=== PATIENT | female | born 2000 | race Caucasian/White ===

== ENCOUNTER 2022-02-13 19:12 | Emergency (ER) | payer OTHER ==
[2022-02-13] MEDS ORDERED: Sodium Chloride 0.9% 1,000 ML IV ONE (22:16)
[2022-02-13 22:40] LABS: CARBON DIOXIDE,CO2 27.1 mmol/L (21.0-32.0); POTASSIUM,K 3.8 mmol/L (3.5-5.1)
[2022-02-14 01:33] LABS: CORONAVIRUS COVID-19 NAA POSITIVE (NEGATIVE); INFLUENZA A NAA NEGATIVE (NEGATIVE); INFLUENZA B NAA NEGATIVE (NEGATIVE)
== END 2022-02-14 01:00 | disposition home or self-care (01) ==
LOC: MW.ED 19:12
DX: O20.8 Other hemorrhage in early pregnancy (principal); U07.1 COVID-19; Z3A.01 Less than 8 weeks gestation of pregnancy
CPT/HCPCS: 0240U; 36415; 76801; 80053; 81001; 81025; 84702; 85025; 86900; 86901; 87086; 96360; 99284; J7030

== ENCOUNTER 2023-03-16 10:20 | Emergency (ER) | payer SELFPAY | END 2023-03-16 12:26 | disposition home or self-care (01) | LOC: MW.ED 10:20 | DX: T78.40XA Allergy, unspecified, initial encounter (principal); Z79.899 Other long term (current) drug therapy | CPT/HCPCS: 99283; 99284 ==

== ENCOUNTER 2023-03-17 11:55 | Emergency (ER) | payer MEDICAID ==
[2023-03-17] MEDS ORDERED: Famotidine 20 MG/2 ML SDV IVPUSH STA (12:06)
[2023-03-17] MEDS ORDERED: diphenhydrAMINE 50 MG/ML SDV IVPUSH STA (12:06)
[2023-03-17] MEDS ORDERED: methylPREDNISolone Sodium Succinate 125 MG/2 ML SDV IVPUSH STA (12:06)
[2023-03-17] MEDS ORDERED: Sodium Chloride 0.9% 2.5 ML Syringe FLUSH PRN (12:07)
[2023-03-17] MEDS ORDERED: Sodium Chloride 0.9% 1,000 ML IV STA (12:07)
[2023-03-17] MEDS ORDERED: Sodium Chloride 0.9% 10 ML Syringe FLUSH PRN (12:07)
== END 2023-03-17 14:03 | disposition home or self-care (01) ==
LOC: MW.ED 11:55
DX: T78.3XXA Angioneurotic edema, initial encounter (principal)
CPT/HCPCS: 96361; 96374; 96375; 99283; J1200; J2930; J3490; J7030; 99284